=== PATIENT | female | born 1985 | race Two or more races ===

== ENCOUNTER 2016-10-31 07:53 | Outpatient (CLI) | payer MEDICAID | END 2016-10-31 07:54 | disposition home or self-care (01) | LOC: NC 07:53 | PROVIDERS: ATTEND Obstetrics & Gynecology | DX: O24.410 Gestational diabetes mellitus in pregnancy, diet controlled (principal); Z71.3 Dietary counseling and surveillance; Z3A.26 26 weeks gestation of pregnancy ==